=== PATIENT | female | born 1985 | race Caucasian/White ===

== ENCOUNTER 2016-06-30 12:35 | Outpatient (CLI) | payer BC ==
[~2016-06-30] VITALS: Ht 170.2 cm; Wt 68.6 kg
[~2016-06-30 12:35] MED LIST: IBUP-1773 PO; PREN-37 PO
--- OUTSIDE RECORDS SUMMARY | 2016-06-30 12:47 | XMS REPORT | Continuity of Care Document ---
Author Author [facility] Organization [facility] Address Unknown Phone Unavailable Allergies Active Description Code Type Severity Reaction Onset Reported/Identified Relationship to Patient Clinical Status Yes NKANo Known Allergies NKA Miscellaneous Allergy Unknown N/ A 11/19/2006 Yes Cephalosporins [id number] Drug Allergy Moderate SEVERE RASH 07/22/2015 Yes penicillinase [id number] Drug Allergy Moderate RASH 07/22/2015 Medications Problems Date Dx Coded Attending Type Code Diagnosis Diagnosed By 05/26/2014 DAMIEN PHILLIPS DO S Ot 640.03 05/26/2014 DAMIEN PHILLIPS DO S Ot 640.03 05/26/2014 DAMIEN PHILLIPS DO S Ot 640.03 05/26/2014 DAMIEN PHILLIPS DO S Ot 640.03 06/10/2014 FENECH DAMIEN HENDERSON S Ot 640.03 01/28/2015 FENECH DO DAMIEN S Ot 640.03 02/11/2015 JEANNIE STARK MANGA ARTIST Ot N91.2 07/05/2015 JEANNIE STARK MANGA ARTIST Ot N91.2 07/05/2015 JEANNIE STARK MANGA ARTIST Ot N91.2 07/22/2015 DAMIEN PHILLIPS DO S Ot O02.1 07/22/2015 DAMIEN PHILLIPS DO S Ot Z01.812 07/22/2015 FENECH DAMIEN HENDERSON S Ot Z11.2 07/23/2015 FENECH DO DAMIEN S Ot O02.1 07/23/2015 FENECH DO DAMIEN S Ot Z01.812 07/23/2015 FENECH DO DAMIEN S Ot Z11.2 07/27/2015 JEANNIE STARK MANGA ARTIST Ot N91.2 07/27/2015 JEANNIE STARK MANGA ARTIST Ot N91.2 07/27/2015 JEANNIE STARK MANGA ARTIST Ot N91.2 07/27/2015 DAMIEN PHILLIPS DO S Ot O03.4 07/27/2015 DAMIEN PHILLIPS DO S Ot Z3A.09 Procedures Results Encounters ACCT No. Visit Date/Time Discharge Status Pt. Type Provider Facility Loc./Unit Complaint [id number] 07/27/2015 06:00:00 2015 09:40:00 DIS Outpatient DAMIEN PHILLIPS DO [facility] [id number] 07/22/2015 12:09:00 2015 13:29:00 DIS Outpatient DAMIEN PHILLIPS DO [facility] PREOP [id number] 01/28/2015 10:29:00 2014 23:59:59 CLS Outpatient JEANNIE STARK MANGA ARTIST [facility] LAB [id number] 05/24/2014 13:53:00 2014 23:59:59 CLS Outpatient ALAN HENDERSON DAMIEN Shiva [facility] LAB [id number] 06/16/2015 09:25:00 ACT Outpatient JEANNIE STARK MANGA ARTIST [facility] LAB [id number] 06/14/2015 13:33:00 ACT Outpatient JEANNIE STARK MANGA ARTIST [facility] LAB
[2016-06-30 12:52] VITALS: BP 107/58
[2016-06-30] MEDS ORDERED: D5 LR IV SOLUTION 1,000 ML IV ONE ×2 (13:16→14:00)
[2016-06-30] MEDS ORDERED: ENOX40DI13 SQ (14:07)
[2016-06-30] MEDS ORDERED: PROG50VI5 IM (14:08)
[2016-06-30] MEDS ORDERED: PREN-53 PO (14:08)
[2016-06-30] MEDS ORDERED: IRON1TAB95 PO (14:09)
--- NOTE | 2016-07-03 15:06 | Physician Query-Final Dx ---
JOHNSON JIMENES 07/03/16 1506: Clinic Account Progress/Dx Physician Query: Please give diagnosis Date of Service Jun 30, 2016 at 12:35 DARINEL HERNANDEZ MD 07/04/16 0822: Clinic Account Progress/Dx DIAGNOSIS: Diagnosis false labor JOHNSON JIMENES Jul 03, 2016 15:06 DARINEL HERNANDEZ MD Jul 04, 2016 08:22
== END 2016-06-30 16:01 | disposition home or self-care (01) ==
LOC: WSo 12:35 → LDRP 12:35 → WSo 16:01
PROVIDERS: ATTEND Obstetrics & Gynecology
DX: O47.03 False labor before 37 completed weeks of gestation, third trimester (principal); Z3A.28 28 weeks gestation of pregnancy
CPT/HCPCS: 96360; 96361; 99214

== ENCOUNTER 2016-08-09 22:00 | Outpatient (CLI) | payer BC ==
[~2016-08-09] VITALS: Ht 170.2 cm; Wt 70.8 kg
[~2016-08-09 22:00] MED LIST changes: +ENOX40DI13 SQ; +IRON1TAB95 PO; +PREN-53 PO; +PROG50VI5 IM
[2016-08-09 22:17] VITALS: BP 114/62
[2016-08-09 22:48] LABS: BILIRUBIN,URINE NEGATIVE (NEGATIVE); KETONES,URINE NEGATIVE (NEGATIVE); LEUKOCYTE ESTERASE ,URINE NEGATIVE (NEGATIVE); NITRITE,URINE NEGATIVE (NEGATIVE); PH,URINE 7 (5-9); PROTEIN,URINE NEGATIVE (NEGATIVE); UROBILINOGEN,URINE NORMAL (NORMAL)
[2016-08-09 23:55] LABS: ALANINE AMINOTRANSFERASE 10 U/L (0-55); ALBUMIN 3.1 G/DL (3.2-4.5); ANION GAP 12 MMOL/L (5-14); ASPARTATE AMINO TRANSFERASE 10 U/L (5-34); BILIRUBIN,TOTAL 0.3 MG/DL (0.1-1.0); BLOOD UREA NITROGEN 7 MG/DL (7-18); BUN/CREATININE RATIO 11; CALCIUM 8.6 MG/DL (8.5-10.1); CARBON DIOXIDE 18 MMOL/L (21-32); CHLORIDE 107 MMOL/L (98-107); CREATININE SERUM 0.61 MG/DL (0.60-1.30); GFR ESTIMATED > 60; GLUCOSE 83 MG/DL (70-105); POTASSIUM 3.5 MMOL/L (3.6-5.0); SODIUM 137 MMOL/L (135-145); TOTAL PROTEIN 6.1 G/DL (6.4-8.2)
[2016-08-10] MEDS ORDERED: [UNRECOGNIZED DRUG - CODE] SQ (00:24)
[2016-08-10] MEDS ORDERED: ASPI-999 PO (00:24)
--- NOTE | 2016-08-10 14:51 | Physician Query-Final Dx ---
ANITA MARTÍNEZ 08/10/16 1451: Clinic Account Progress/Dx Physician Query: Please give diagnosis Date of Service Aug 09, 2016 at 22:00 PHYLLIS FANG MD 08/16/16 0846: Clinic Account Progress/Dx DIAGNOSIS: Diagnosis Itching in third trimester, contractions in third trimester ANITA MARTÍNEZ Aug 10, 2016 14:51 PHYLLIS FANG MD Aug 16, 2016 08:46
[2016-08-15 02:37] LABS: CHENODEOXYCHOLIC ACID 1.4 umol/L (0.0-3.4); CHOLIC ACID 0.9 umol/L (0.0-1.9); DEOXYCHOLIC ACID 1.6 umol/L (0.0-2.5); URSODEOXYCHOLIC ACID 0.3 umol/L (0.0-1.0)
[2016-08-15 07:28] LABS: TOTAL BILE ACID 4.2 umol/L (0.0-7.0)
== END 2016-08-10 00:30 | disposition home or self-care (01) ==
LOC: WSo 22:00 → LDRP 22:00 → WSo 08-10 00:30
PROVIDERS: ATTEND Obstetrics & Gynecology
DX: O47.1 False labor at or after 37 completed weeks of gestation (principal); Z3A.34 34 weeks gestation of pregnancy; O99.73 Diseases of the skin and subcutaneous tissue complicating the puerperium; L29.9 Pruritus, unspecified
CPT/HCPCS: 36415; 80053; 81000; 83789; 99213

== ENCOUNTER 2016-09-05 09:38 | Outpatient (CLI) | payer BC ==
[~2016-09-05] VITALS: Ht 170.2 cm; Wt 73.0 kg
[~2016-09-05 09:38] MED LIST changes: +ASPI-999 PO; +[UNRECOGNIZED DRUG - CODE] SQ
[2016-09-05] MEDS ORDERED: FOLI1TAB24 PO (09:53)
[2016-09-05 09:56] VITALS: BP 115/74
== END 2016-09-05 10:01 | disposition home or self-care (01) ==
LOC: PREOP 09:38
PROVIDERS: ATTEND Obstetrics & Gynecology
DX: Z01.818 Encounter for other preprocedural examination (principal); Z11.2 Encounter for screening for other bacterial diseases; O34.211 Maternal care for low transverse scar from previous cesarean delivery
CPT/HCPCS: 87081

== ENCOUNTER 2016-09-11 05:50 | Inpatient (IN) | payer BC ==
[~2016-09-11] VITALS: Ht 170.2 cm; Wt 72.6 kg
[~2016-09-11 05:50] MED LIST changes: +CITRIC ACID/SOB CIT (BICITRA) 30 ML UDC ONE; +CLINDAMYCIN 900 MG/6ML (CLEOCIN) VIAL ONE; +FAMOTIDINE 20MG/2ML IV (PEPCID) ONE; +FOLI1TAB24 PO; +LACTATED RINGERS 1,000 ML IV ONE; +METOCLOPRAMIDE INJ 10 MG/2 ML (REGLAN) ONE; +NS (IVPB) 50 ML ONE; +metroNIDAZOLE 500MG/100ML IVPB 100 ML ONE
[2016-09-11 05:54] VITALS: BP 128/76
[2016-09-11] MEDS ORDERED: LACTATED RINGERS 1,000 ML IV PRN ×2 (06:16→07:24)
[2016-09-11 06:26] LABS: BASOPHILS % (AUTO) 0 % (0-10); EOSINOPHILS # (AUTO) 0.1 10^3/uL (0.0-0.3); EOSINOPHILS % (AUTO) 1 % (0-10); LYMPHOCYTES # (AUTO) 1.4 X 10^3 (1.0-4.0); LYMPHOCYTES % (AUTO) 16 % (12-44); MEAN CORPUSCULAR HEMOGLOBIN 27 PG (25-34); MEAN CORPUSCULAR HGB CONC 33 G/DL (32-36); MEAN CORPUSCULAR VOLUME 83 FL (80-99); MEAN PLATELET VOLUME 10.5 FL (7.4-10.4); MONOCYTES # (AUTO) 0.5 X 10^3 (0.0-1.0); MONOCYTES % (AUTO) 6 % (0-12); NEUTROPHILS # (AUTO) 7.2 X 10^3 (1.8-7.8); NEUTROPHILS % (AUTO) 78 % (42-75); PLATELET COUNT 241 10^3/uL (130-400); RED CELL DISTRIBUTION WIDTH 14.2 % (10.0-14.5); WHITE BLOOD COUNT 9.2 10^3/uL (4.3-11.0)
[2016-09-11] MEDS ORDERED: FAMOTIDINE 20MG/2ML IV (PEPCID) IV ONE ×2 (06:30→07:00)
[2016-09-11] MEDS ORDERED: CITRIC ACID/SOB CIT (BICITRA) 30 ML UDC PO ONE ×2 (06:30→07:00)
[2016-09-11] MEDS ORDERED: METOCLOPRAMIDE INJ 10 MG/2 ML (REGLAN) IV ONE ×2 (06:30→07:00)
[2016-09-11 06:57] VITALS: BP 108/64
[2016-09-11] MEDS ORDERED: LACTATED RINGERS 1,000 ML IV SCH ×2 (06:57)
[2016-09-11] MEDS ORDERED: OXYTOCIN/NORMAL SALINE 1,000 ML IV ONE (07:00)
[2016-09-11] MEDS ORDERED: fentaNYL INJECTION 100 MCG/2 ML AMP ONE (07:00)
--- NOTE | 2016-09-11 07:16 | History & Physical-OB ---
OB - Chief Complaint & HPI Date Date of Admission: Date of Admission: September 11, 2016 at 5:50 am Chief Complaint/History Hx : 5 Hx Para: 1 Expected Date of Delivery: September 17, 2016 Gestational Age in Weeks: 39 Gestational Age in Days: 1 Indication for : desires repeat Admission Nurse Assessment Rev: Yes History of Labs A pos Antibody neg Rubella equivocal RPR NR HIV NR HBsAg NR GC neg GBS neg Allergies and Home Medications Allergies Coded Allergies: Cephalosporins (Verified Allergy, Intermediate, SEVERE RASH, 07/22/15) Penicillins (Verified Allergy, Unknown, 09/05/16) Home Medications Aspirin 81 Mg Tab.chew, 81 MG PO DAILY, (Reported) Folic Acid 1 Mg Tablet, 1 MG PO DAILY, (Reported) Heparin Sodium,Porcine/Pf 1,000 Unit/1 Ml Vial, 5,000 UNIT SQ BID, (Reported) Iron,Carbonyl/Vit C/Vit B12/FA 1 Each Tablet, 1 EACH PO DAILY, (Reported) Vit/Iron Fumarate/FA 1 Each Tablet, 1 EACH PO DAILY, (Reported) OB - History Hx of Present Care: Yes Ultrasounds: Normal mid trimester US Obstetrical Complications: None Medical Complications: Other (Antithrombin III def, MTHFR heterozygous) Delivery History Hx Blood Disorders: No Adverse Rxn to Tranfusion: No Patient Past Medical History Habitual , MVP Social History/Family History HIV/AIDS: No Recent Infectious Disease Expo: No Sexually Transmitted Disease: No Alcohol Use: Denies Use Recreational Drug Use: No Immunizations Date of Influenza Vaccine: May 02, 2016 OB - Admission Exam Physical Exam HEENT: NCAT Lungs: Clear Abdomen: Gravid Extremities: Normal Reflexes: Normal Cervical Dilatation: 3cm Effacement: 75% Station: -2 Membranes: Intact Heart Rate: 130's Accelerations: Accelerations Present Decelerations: No Decelerations Short Term Variability: Present Penitentiary Variability: Average (6-25) Contractions on Admission: 6-10 Minutes Apart Intensity: Mild Labs Laboratory Tests Test 09/11/16 06:05 Range/Units White Blood Count 9.2 4.3-11.0 10^3/uL Red Blood Count 3.90 L 4.35-5.85 10^6/uL Hemoglobin 10.5 L 11.5-16.0 G/DL Hematocrit 32 L 35-52 % Mean Corpuscular Volume 83 80-99 FL Mean Corpuscular Hemoglobin 27 25-34 PG Mean Corpuscular Hemoglobin Concent 33 32-36 G/DL Red Cell Distribution Width 14.2 10.0-14.5 % Platelet Count 241 130-400 10^3/uL Mean Platelet Volume 10.5 H 7.4-10.4 FL Neutrophils (%) (Auto) 78 H 42-75 % Lymphocytes (%) (Auto) 16 12-44 % Monocytes (%) (Auto) 6 0-12 % Eosinophils (%) (Auto) 1 0-10 % Basophils (%) (Auto) 0 0-10 % Neutrophils # (Auto) 7.2 1.8-7.8 X 10^3 Lymphocytes # (Auto) 1.4 1.0-4.0 X 10^3 Monocytes # (Auto) 0.5 0.0-1.0 X 10^3 Eosinophils # (Auto) 0.1 0.0-0.3 10^3/uL Basophils # (Auto) 0.0 0.0-0.1 10^3/uL OB - Assessment/Plan/Diagnosis Assessment Assessment: section Plan Plan: Section Discharge Diagnosis Diagnosis: 31 yo @ 39.1 weeks Previous section MTHFR heterozygous Antithrombin III def Mitral valve prolapse GBS neg DAMIEN PHILLIPS DO September 11, 2016 7:16 am
[2016-09-11] MEDS: KETOROLAC 30 MG/ML VIAL IVP SCH ×3 (08:00→21:09)
[2016-09-11] MEDS ORDERED: DEXAMETHASONE PF 10 MG/ML (DECADRON) VIAL ONE (08:05)
[2016-09-11] MEDS ORDERED: ONDANSETRON 4 MG/2 ML (SDV) Z0FRAN ONE (08:05)
[2016-09-11] MEDS ORDERED: KETOROLAC 30 MG/ML VIAL ONE (08:05)
[2016-09-11] MEDS ORDERED: OXYTOCIN/NORMAL SALINE 500 ML IV SCH (08:15)
[2016-09-11] MEDS ORDERED: HYDROcodone/APAP 5 MG/325 MG (LORTAB) TAB PO PRN (08:15)
[2016-09-11] MEDS ORDERED: MEASLES,MUMPS,RUBELLA 1 EA INJ SC SCH (08:15)
[2016-09-11] MEDS ORDERED: TETANUS,DIPTH,PERTUSS P/F (BOOSTRIX) 0.5 ML VIAL IM SCH (08:15)
[2016-09-11] MEDS ORDERED: HYDROmorphone (DILAUDID) 2 MG/ML VIAL IVP PRN (08:15)
[2016-09-11] MEDS ORDERED: ONDANSETRON 4 MG/2 ML (SDV) Z0FRAN IVP PRN (08:15)
--- NOTE | 2016-09-11 08:21 | Discharge Inst-Women's Service ---
Discharge Inst-Women's Serv Depart Medication/Instructions New, Converted or Re-Newed RX: RX on Chart Consults/Follow Up Additional Follow Up: Yes Orders/Referrals Dr. Sanchez in 7-10 days and in 6 weeks Activity Activity: Activity as Tolerated NO SMOKING: NO SMOKING Nothing Inside Vagina: No Douching, No [place], No Tampons Diet Discharge Diet: No Restrictions Symptoms to Report to : Bleeding Excessive, Pain Increased, Fever Over 101 Degrees F, Vaginal Bleeding Increase, Questions/Concerns continue lovenox x 2 weeks postop For Any Problems or Questions: Contact Your Physician Skin/Wound Care Infection Signs and Symptoms: Increased Redness, Foul Odor of Wound, Increased Drainage, Skin Itchy or Has a Rash, Increased Swelling, Temperature Above 101 F Operative Area Clean and Dry: Keep Incision Clean/Dry Stitches/[place]/Dermabond: Dermabond, Care of Stitches Bathing Instructions: DAMIEN Kennedy DO September 11, 2016 8:20 am
[2016-09-11] MEDS ORDERED: IBUP-1773 PO (08:23)
[2016-09-11] MEDS ORDERED: DOCU100C37 PO (08:23)
[2016-09-11] MEDS ORDERED: HYDR-3812 PO (08:23)
[2016-09-11] MEDS ORDERED: ENOX40DI8 SQ (08:28)
[2016-09-11] MEDS ORDERED: NALOXONE 0.4 MG/ML 1 ML (NARCAN) VIAL IV PRN ×2 (08:30)
[2016-09-11] MEDS ORDERED: METOCLOPRAMIDE INJ 10 MG/2 ML (REGLAN) IV PRN (08:30)
[2016-09-11] MEDS ORDERED: ONDANSETRON 4 MG/2 ML (SDV) Z0FRAN IV PRN (08:30)
[2016-09-11] MEDS ORDERED: diphenhydrAMINE 50 MG/ML INJ (BENADRYL) IV PRN (08:30)
[2016-09-11 09:00] VITALS: BP 108/62
[2016-09-11 12:06] VITALS: BP 102/61
[2016-09-11] MEDS ORDERED: CATHETER FLUSH 10 ML SYR IV SCH (14:00)
--- NOTE | 2016-09-11 15:32 | OPERATIVE REPORT ---
DATE OF SERVICE: 09/11/2016 PREOPERATIVE DIAGNOSES: 1. A 31-year-old G5, P1 at 39 weeks and 1 day gestation. 2. Previous section x1. POSTOPERATIVE DIAGNOSES: 1. A 31-year-old G5, P1 at 39 weeks and 1 day gestation. 2. Previous section x1. PROCEDURE PERFORMED: Repeat low transverse section. SURGEON: Dr. Fran Sanchez CHECKING CLERK: MIGUEL Shelby, who was necessary for retraction of tissues and completion of procedure. ANESTHESIA: Spinal. ESTIMATED BLOOD LOSS: 500 mL. URINE OUTPUT: 25 mL. FLUIDS: 1500 mL LR FINDINGS: A live female weighing 8 pounds 1 ounce, Apgars 8 and 9, grossly normal appearing uterus, bilateral fallopian tubes and ovaries. Dense scar tissue of the vesicouterine peritoneum. INDICATION FOR PROCEDURE: A 31-year-old female, a patient established in my office and saw her in care throughout her entire . It was uncomplicated with the exception of history of labor. She received [place] 17 alpha hydroxyprogesterone injections weekly up until 35 weeks and she also was undergoing Lovenox and heparin therapy due to history of anti-thrombin 3 deficiency and PHFR heterozygous. She proceeded well all the way to 39 weeks with minimal change in cervical dilatation despite irregular contractions in the 3rd trimester. We discussed proceeding with repeat . Risks of the procedure was discussed with the patient, details including risks of bleeding, infection, damage to any surrounding structures including but not limited to bowel, bladder, ureter, kidneys, need for blood transfusion, hysterectomy and even . Everything was discussed with the patient, consent was obtained in the preoperative area and the patient was taken back to the operating room. OPERATIVE REPORT IN DETAIL: Once in the operating room, spinal analgesia was found to be adequate. She was placed in the supine position with leftward tile, prepped and draped in a normal sterile fashion. Time-out was performed and anesthesia was tested. I then proceeded with making a Pfannenstiel skin incision through the previously existing scar using a knife and carried down to the underlying fascia using Bovie cautery. The fascia incision was extended laterally using Bovie cautery. Superior aspect of fascial incision then grasped with Zehra clamp, tented up and dissected off the underlying rectus muscles. The inferior aspect of the fascial incision was then grasped with Zehra clamps, tented upward and dissected off the underlying rectus muscles. The rectus muscles were then dissected down the midline using Zazueta scissors which exposed the peritoneum which I entered bluntly. Peritoneum incision was extended using blunt traction which reveals the peritoneal surface in the uterus which was found to be thinned out in the lower uterine segment. I then placed the Mick ring retractor in the peritoneal incision which offered excellent lateral sidewall retraction. Then making incision at the vesicouterine peritoneum and bluntly dissect the bladder flap off of the lower uterine segment, pulling the vesicouterine peritoneum up caudad. I then proceeded with myotomy until membranes were visualized at which point I extended the uterine incision laterally and superiorly using bandage scissors. Amniotomy was performed using an Allis clamp. Clear fluid was noted. The was found in the vertex presentation. With gentle fundal pressure, the 's head was elevated up through the incision where it was delivered through the incision. The nares and oropharynx were bulb suctioned. Anterior and posterior shoulders were delivered after a nuchal cord was reduced. The infant was then brought onto the operative field where the cord was doubly clamped and cut and was handed off to awaiting nurses in attendance. Cord blood was collected, 3 vessel cord with intact placenta was delivered spontaneously thereafter. IV Pitocin was initiated to facilitate uterine contraction and fundus became firm with bimanual massage. The uterus was then exteriorized and cleared of all clots and debris. I then proceeded with closing the uterine incision with 0 Vicryl suture in a running locked fashion, a 2nd layer imbricating with 0 Monocryl. Excellent hemostasis noted after doing so. I then placed the uterus back into the pelvis and copiously irrigated the pelvis using normal saline. There was no active bleeding noted from any of my dissection planes. I then placed Interceed antiadhesive over my lower transverse incision and proceeded with closing the peritoneum using 3-0 Vicryl suture in a running fashion. The rectus muscles were reapproximated using 3-0 Vicryl in running interrupted fashion. The fascia was reapproximated using 0 Vicryl suture in a running fashion. The skin was then closed using 4-0 Monocryl in a running subcuticular. Dermabond was applied, dressed with a sterile dressing and adhesive white tape. The patient tolerated the procedure well and was sent to the recovery area in stable condition. Lap and sponge counts were correct at the end of the procedure. Instrument counts were correct as well. 900 mg clindamycin were given preoperative for infection prophylaxis. Job ID: [id number] DocumentID: [id number] Dictated Date: 09/11/2016 07:56:54 Electroplating Laborer Date: 09/11/2016 13:53:30 Dictated By: DO RICKIE VAZQUEZ
[2016-09-11 17:00] VITALS: BP 110/59
[2016-09-11 20:05] VITALS: BP 102/64
[2016-09-11] MEDS: DOCUSATE SODIUM 100 MG (COLACE) CAP PO SCH (21:08)
[2016-09-12] VITALS (7 sets, daily range): BP systolic 97–113; BP diastolic 62–73
[2016-09-12] MEDS: KETOROLAC 30 MG/ML VIAL IVP SCH (03:11)
[2016-09-12 05:46] LABS: BASOPHILS % (AUTO) 0 % (0-10); EOSINOPHILS % (AUTO) 0 % (0-10); LYMPHOCYTES # (AUTO) 2.2 X 10^3 (1.0-4.0); LYMPHOCYTES % (AUTO) 17 % (12-44); MEAN CORPUSCULAR HEMOGLOBIN 26 PG (25-34); MEAN CORPUSCULAR HGB CONC 32 G/DL (32-36); MEAN CORPUSCULAR VOLUME 83 FL (80-99); MEAN PLATELET VOLUME 10.1 FL (7.4-10.4); MONOCYTES # (AUTO) 0.9 X 10^3 (0.0-1.0); MONOCYTES % (AUTO) 7 % (0-12); NEUTROPHILS # (AUTO) 9.6 X 10^3 (1.8-7.8); NEUTROPHILS % (AUTO) 76 % (42-75); PLATELET COUNT 190 10^3/uL (130-400); RED BLOOD COUNT 2.96 10^6/uL (4.35-5.85); RED CELL DISTRIBUTION WIDTH 14.1 % (10.0-14.5); WHITE BLOOD COUNT 12.7 10^3/uL (4.3-11.0)
[2016-09-12] MEDS: DOCUSATE SODIUM 100 MG (COLACE) CAP PO SCH ×2 (08:45→19:55)
[2016-09-12] MEDS: IBUPROFEN 600 MG (MOTRIN) TAB PO SCH ×3 (08:45→21:37)
[2016-09-12] MEDS: ENOXAPARIN 40 MG/0.4 ML (LOVENOX) SYR SC SCH (08:46)
[2016-09-12] MEDS ORDERED: FERROUS SULF 325 MG (IRON) TAB PO ONE (08:59)
[2016-09-12] MEDS: FERROUS SULF 325 MG (IRON) TAB PO SCH ×2 (09:08→19:55)
--- NOTE | 2016-09-12 09:11 | Progress Note-Standard ---
Standard Progress Note Progress Notes/Assess & Plan Progress/Assessment & Plan Patient doing well this AM. Pain well controlled. Lochia light. Ambulating and voiding freely. Denies lightheadedness, dizziness. Vital Sign - Last 24 Hours 09/11/16 09/11/16 09/11/16 09/12/16 12:06 17:00 20:05 01:10 Temp 99.0 99.0 98.0 98.4 Pulse 86 60 71 84 Resp 18 18 18 18 B/P (MAP) 102/61 110/59 102/64 97/62 Pulse Ox 95 97 96 97 09/12/16 06:10 Temp 98.2 Pulse 70 Resp 18 B/P (MAP) 98/62 Pulse Ox 96 Intake and Output 09/11/16 09/11/16 09/12/16 15:00 23:00 07:00 Intake Total 100 ml 1200 ml 500 ml Output Total 25 ml 900 ml 800 ml Balance 75 ml 300 ml -300 ml Laboratory Tests Test 09/12/16 05:25 Range/Units White Blood Count 12.7 H 4.3-11.0 10^3/uL Red Blood Count 2.96 L 4.35-5.85 10^6/uL Hemoglobin 7.8 #L 11.5-16.0 G/DL Hematocrit 25 L 35-52 % Mean Corpuscular Volume 83 80-99 FL Mean Corpuscular Hemoglobin 26 25-34 PG Mean Corpuscular Hemoglobin Concent 32 32-36 G/DL Red Cell Distribution Width 14.1 10.0-14.5 % Platelet Count 190 130-400 10^3/uL Mean Platelet Volume 10.1 7.4-10.4 FL Neutrophils (%) (Auto) 76 H 42-75 % Lymphocytes (%) (Auto) 17 12-44 % Monocytes (%) (Auto) 7 0-12 % Eosinophils (%) (Auto) 0 0-10 % Basophils (%) (Auto) 0 0-10 % Neutrophils # (Auto) 9.6 H 1.8-7.8 X 10^3 Lymphocytes # (Auto) 2.2 1.0-4.0 X 10^3 Monocytes # (Auto) 0.9 0.0-1.0 X 10^3 Eosinophils # (Auto) 0.0 0.0-0.3 10^3/uL Basophils # (Auto) 0.0 0.0-0.1 10^3/uL Incision: c/d/i Diagnosis: POD 1 RLTCS Acute blood loss anemia superimposed on anemia of Antithrombin III def MTHFR heterozygous P: Lovenox resumed today Replace iron Encourage ambulation/ Anticipate dc tomorrow. DAMIEN PHILLIPS DO September 12, 2016 9:11 am
--- NOTE | 2016-09-12 11:34 | Anesthesia-Regional Post-Op ---
Regional Patient Condition Mental Status: Alert, Oriented x3 Circulation: Same as Pre-Op Headache: Absent Sensation: Full Recovery Motor Block: Absent Post Op Complications Complications None Follow Up Care/Instructions Patient Instructions None needed. Anesthesia/Patient Condition Patient is doing well, no complaints, stable vital signs, no apparent adverse anesthesia problems. No complications reported per nursing. ANITA MARTINEZ CRNA September 12, 2016 11:34
[2016-09-13] MEDS: IBUPROFEN 600 MG (MOTRIN) TAB PO SCH ×2 (03:30→08:39)
[2016-09-13 05:24] VITALS: BP 115/74
[2016-09-13 08:30] VITALS: BP 114/71
[2016-09-13] MEDS: FERROUS SULF 325 MG (IRON) TAB PO SCH (08:38)
[2016-09-13] MEDS: ENOXAPARIN 40 MG/0.4 ML (LOVENOX) SYR SC SCH (08:38)
[2016-09-13] MEDS: DOCUSATE SODIUM 100 MG (COLACE) CAP PO SCH (08:39)
--- NOTE | 2016-09-13 09:34 | Progress Note-Standard ---
Standard Progress Note Progress Notes/Assess & Plan Progress/Assessment & Plan Patient doing well this AM. Pain well controlled. Lochia light. Ambulating and voiding freely. Denies lightheadedness, dizziness. Vital Sign - Last 24 Hours 09/12/16 09/12/16 09/12/16 09/12/16 13:30 18:00 19:36 23:10 Temp 99.0 99.0 98.7 97.3 Pulse 85 89 78 67 Resp 18 18 18 20 B/P (MAP) 104/63 113/73 113/68 107/64 Pulse Ox 97 97 95 96 09/13/16 09/13/16 05:24 08:30 Temp 97.9 98.7 Pulse 69 67 Resp 18 18 B/P (MAP) 115/74 114/71 Pulse Ox 97 97 Intake and Output 09/12/16 09/12/16 09/13/16 15:00 23:00 07:00 Intake Total 1890 ml 1000 ml Output Total 2400 ml 1000 ml Balance -510 ml 0 ml Incision: c/d/i Diagnosis: POD 2 RLTCS Acute blood loss anemia superimposed on anemia of Antithrombin III def MTHFR heterozygous P: Lovenox resumed today Replace iron Encourage ambulation/ Anticipate today. DAMIEN PHILLIPS DO September 13, 2016 9:34 am
[2016-09-13 11:45] VITALS: BP 114/71
== END 2016-09-13 11:45 | disposition home or self-care (01) | DRG 765 ==
LOC: LDRP 05:50
PROVIDERS: ADMIT Obstetrics & Gynecology; ATTEND Obstetrics & Gynecology
PROC: 3E0P05Z Introduction of Adhesion Barrier into Female Reproductive, Open Approach (ICD-10-PCS; 2016-09-11)
PROC: 10D00Z1 Extraction of Products of Conception, Low, Open Approach (ICD-10-PCS; principal; 2016-09-11 07:08)
DX: O34.211 Maternal care for low transverse scar from previous cesarean delivery (principal); O99.113 Other diseases of the blood and blood-forming organs and certain disorders involving the immune mechanism complicating pregnancy, third trimester; D68.59 Other primary thrombophilia; O99.283 Endocrine, nutritional and metabolic diseases complicating pregnancy, third trimester; E72.12 Methylenetetrahydrofolate reductase deficiency; O99.013 Anemia complicating pregnancy, third trimester; D62 Acute posthemorrhagic anemia; I34.1 Nonrheumatic mitral (valve) prolapse; Z3A.39 39 weeks gestation of pregnancy; Z37.0 Single live birth; Z23 Encounter for immunization
CPT/HCPCS: 36415; 85025; 86850; 86900; 86901; 90707; 94664

== ENCOUNTER 2017-03-20 07:59 | Emergency (ER) | payer BC ==
[~2017-03-20] VITALS: Ht 170.2 cm; Wt 59.0 kg
[~2017-03-20 07:59] MED LIST changes: -CITRIC ACID/SOB CIT (BICITRA) 30 ML UDC ONE; -CLINDAMYCIN 900 MG/6ML (CLEOCIN) VIAL ONE; +DOCU100C37 PO; +ENOX40DI8 SQ; -FAMOTIDINE 20MG/2ML IV (PEPCID) ONE; +HYDR-3812 PO; -LACTATED RINGERS 1,000 ML IV ONE; -METOCLOPRAMIDE INJ 10 MG/2 ML (REGLAN) ONE; -NS (IVPB) 50 ML ONE; -metroNIDAZOLE 500MG/100ML IVPB 100 ML ONE
[2017-03-20 08:32] LABS: BILIRUBIN,URINE NEGATIVE (NEGATIVE); KETONES,URINE NEGATIVE (NEGATIVE); LEUKOCYTE ESTERASE ,URINE 1+ (NEGATIVE); NITRITE,URINE NEGATIVE (NEGATIVE); PH,URINE 7 (5-9); PROTEIN,URINE NEGATIVE (NEGATIVE); UROBILINOGEN,URINE NORMAL (NORMAL)
[2017-03-20] MEDS ORDERED: NITR-65 PO (09:08)
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
[2017-03-20 09:11] VITALS: BP 116/71
== END 2017-03-20 09:12 | disposition home or self-care (01) ==
LOC: EDUNIT# 07:59 → ER 08:01
DX: N39.0 Urinary tract infection, site not specified (principal); M54.5 Low back pain; K21.9 Gastro-esophageal reflux disease without esophagitis; Z87.59 Personal history of other complications of pregnancy, childbirth and the puerperium; Z95.2 Presence of prosthetic heart valve
CPT/HCPCS: 81000; 84703; 87088; 99282

== ENCOUNTER → 2018-07-23 | Outpatient (CLI) | payer OTHER ==
[~2018-07-23] MED LIST changes: +ACHD5005 PO; -HYDR-3812 PO; +NITR-65 PO
--- NOTE | 2018-07-23 13:47 | Diagnostic Imaging Report ---
INDICATION: survey. TECHNIQUE: Multiple real-time grayscale images were obtained over the gravid uterus. COMPARISON: None. FINDINGS: There is a single live fetus in variable presentation. heart rate was recorded at 140 beats per minute. Placenta is anterior and fundal. Amniotic fluid volume appears normal. survey does show kidneys, bladder, and stomach to be unremarkable. There is a four-chamber heart. There is a three-vessel cord with normal insertion. Spine is somewhat limited in evaluation due to position. Images of the brain demonstrate what appears to be significant hydrocephalus. There appears to be overlying parenchymal thinning. There is a dangling choroid sign. There does appear to be septum pellucidum. Biometrical measurements are as follows: Biparietal 5.77 cm, age 23 weeks 5 days. Head circumference 21.51 cm, age 23 weeks 4 days. Abdominal circumference 15.43 cm, age 20 weeks 5 days. Femur length 3.62 cm, age 21 weeks 4 days. Sonographic estimate age: 22 weeks 3 days. Sonographic estimated date of delivery: 11/23/2018. Estimated Weight: 417 gm (+/- 61 gm). LMP percentile: 71%. heart rate: 140 beats per minute. number: 1 of 1. IMPRESSION: 1. Single live IUP at approximately 22 weeks 3 days gestational age. Estimated date of confinement sonographically is 11/23/2018. 2. survey demonstrates what appears to be significant hydrocephalus. No other anomalies are identified. Results were called to Dr. Sanchez prior to this dictation. Dictated by: Dictated on workstation # [id number]
== END ==
LOC: RAD 10:01
PROVIDERS: ATTEND Obstetrics & Gynecology
DX: Z36.89 Encounter for other specified antenatal screening (principal); Z3A.22 22 weeks gestation of pregnancy
CPT/HCPCS: 76805

== ENCOUNTER 2019-11-03 09:48 | Emergency (ER) | payer BC, OTHER ==
[~2019-11-03] VITALS: Ht 170.2 cm; Wt 62.1 kg
[2019-11-03] MEDS ORDERED: LACTATED RINGERS 1,000 ML IV ONE (10:02)
[2019-11-03 10:07] LABS: BILIRUBIN,URINE NEGATIVE (NEGATIVE); CLARITY,URINE CLEAR; COLOR,URINE YELLOW; GLUCOSE, URINE (UA) NEGATIVE (NEGATIVE); KETONES,URINE NEGATIVE (NEGATIVE); LEUKOCYTE ESTERASE ,URINE NEGATIVE (NEGATIVE); NITRITE,URINE NEGATIVE (NEGATIVE); PROTEIN,URINE NEGATIVE (NEGATIVE)
[2019-11-03] MEDS ORDERED: KETOROLAC 30 MG/ML VIAL ONE ×2 (10:13→10:14)
[2019-11-03] MEDS ORDERED: KETOROLAC 30 MG/ML VIAL IVP ONE (10:15)
[2019-11-03 10:18] LABS: BASOPHILS % (AUTO) 1 % (0-10); EOSINOPHILS # (AUTO) 0.3 10^3/uL (0.0-0.3); EOSINOPHILS % (AUTO) 6 % (0-10); HEMATOCRIT 35 % (35-52); HEMOGLOBIN 11.2 G/DL (11.5-16.0); LYMPHOCYTES # (AUTO) 1.9 X 10^3 (1.0-4.0); LYMPHOCYTES % (AUTO) 31 % (12-44); MEAN CORPUSCULAR HEMOGLOBIN 27 PG (25-34); MEAN CORPUSCULAR HGB CONC 32 G/DL (32-36); MEAN CORPUSCULAR VOLUME 84 FL (80-99); MEAN PLATELET VOLUME 9.3 FL (7.4-10.4); MONOCYTES # (AUTO) 0.4 X 10^3 (0.0-1.0); MONOCYTES % (AUTO) 7 % (0-12); NEUTROPHILS # (AUTO) 3.4 X 10^3 (1.8-7.8); NEUTROPHILS % (AUTO) 56 % (42-75); PLATELET COUNT 439 10^3/uL (130-400); RED CELL DISTRIBUTION WIDTH 12.7 % (10.0-14.5); WHITE BLOOD COUNT 6.1 10^3/uL (4.3-11.0)
[2019-11-03 10:29] LABS: BACTERIA,URINE NEGATIVE /HPF; SQUAMOUS EPITHELIAL CELL,UR RARE /HPF
[2019-11-03 10:35] LABS: ALBUMIN 4.4 GM/DL (3.2-4.5); CHLORIDE 105 MMOL/L (98-107); SODIUM 140 MMOL/L (135-145)
[2019-11-03 10:36] LABS: AMYLASE 65 U/L (25-125); CALCIUM 9.7 MG/DL (8.5-10.1)
[2019-11-03 10:37] LABS: GLUCOSE 81 MG/DL (70-105); TOTAL PROTEIN 7.5 GM/DL (6.4-8.2)
[2019-11-03 10:38] LABS: CARBON DIOXIDE 26 MMOL/L (21-32)
[2019-11-03 10:39] LABS: BILIRUBIN,TOTAL 0.4 MG/DL (0.1-1.0)
[2019-11-03 10:41] LABS: ALKALINE PHOSPHATASE 70 U/L (40-136); CREATININE SERUM 0.78 MG/DL (0.60-1.30); GFR ESTIMATED > 60
[2019-11-03 10:42] LABS: BUN/CREATININE RATIO 14
[2019-11-03 10:44] LABS: ALANINE AMINOTRANSFERASE 12 U/L (0-55); LIPASE 20 U/L (8-78)
[2019-11-03] MEDS ORDERED: NS 100 ML (IVPB) BAG IV ONE (10:45)
[2019-11-03] MEDS ORDERED: HOLD METFORMIN - RECEIVED CONTRAST 20 ML VIAL IV SCH (10:45)
[2019-11-03] MEDS ORDERED: IOHEXOL 350 MG/ML 100 ML (OMNIPAQUE 350) VIAL IV ONE (10:45)
[2019-11-03] MEDS ORDERED: CATHETER FLUSH 10 ML SYR IV PRN (10:45)
--- NOTE | 2019-11-03 11:05 | Diagnostic Imaging Report ---
PROCEDURE: CT abdomen and pelvis with contrast, rule out appendicitis. TECHNIQUE: Multiple contiguous axial images were obtained through the abdomen and pelvis after the administration of intravenous contrast. All CT scans use one or more of the following dose optimizing techniques: automated exposure control, MA and/or KvP adjustment based on a patient size and exam type, or iterative reconstruction. INDICATION: Right-sided abdominal pain. COMPARISON: No prior studies are available for comparison. FINDINGS: The lung bases are clear. No discrete liver mass is detected. The gallbladder is unremarkable. No biliary ductal dilatation is identified. The pancreas and spleen are unremarkable. No adrenal mass is detected. The kidneys are unremarkable. No hydronephrosis is identified. The small and large bowel loops are of normal caliber. There is no obstruction. The appendix is not well visualized in the right lower quadrant but no inflammatory changes in the right lower quadrant are seen to suggest appendicitis. The bladder and uterus are unremarkable. There is no free fluid or fluid collection identified. The ovaries are unremarkable. IMPRESSION: Unremarkable CT abdomen and pelvis. No acute abnormality is detected. Dictated by: Dictated on workstation # [id number]
--- NOTE | 2019-11-03 11:15 | Diagnostic Imaging Report ---
Indication: Right lower quadrant abdominal pain Abdomen series PA chest, supine and upright abdominal images are obtained Lungs are clear. There is no intraperitoneal free air. Bowel gas pattern is normal. There are no pathologic masses or calcifications. IMPRESSION: No acute abnormalities in the abdomen Dictated by: Dictated on workstation # [id number]
--- NOTE | 2019-11-03 11:17 | ED Abdominal Pain ---
General Chief Complaint: Abdominal/GI Problems Stated Complaint: R SIDE ABD PAIN Nursing Triage Note: PT AMB TO RM 5 WITH COMPLAINT OF RIGHT SIDE LOWER ABD PAIN. STATES PAIN RADIATES TOWARDS HER BACK. Sepsis Screen: No Definite Risk Source of Information: Patient History of Present Illness Date Seen by Provider: Nov 03, 2019 Time Seen by Provider: 10:00 Initial Comments PT ARRIVES VIA POV FROM HOME C/O RLQ PAIN SINCE YESTERDAY MORNING STATES "IT'S 2 INCHES IN FROM MY HIP BONE AND IS ABOUT 3 CM IN DIAMETER" STATES PAIN IS 5-6/10 STATES "IT FEELS LIKE A BRUISE WHEN MY WAISTBAND RUBS IT" AND PAIN INCREASES WITH TOUCHING IT OCCASIONALLY RADIATES TO RIGHT FLANK AREA NO NAUSEA/VOMITING/DIARRHEA C/O URINARY FREQUENCY, BUT NO PAIN/BURNING ON URINATION STATES SHE HAD TEMP OF 100.4 LAST NIGHT, BUT NO FEVER AT ANY OTHER TIME. NO COUGH/URI SYMPTOMS NO SHORTNESS OF BREATH NO KNOWN SICK CONTACTS OR EXPOSURE TO COVID-19 STATES SHE HAS CHRONIC PELVIC PAIN AND BLADDER ISSUES-STATES IS RELATED TO HER LAST --HAS HAD C-SECTIONS X 3, AND LAST ONE SHE HAD TO HAVE A VERTICAL INCISION ON HER UTERUS BECAUSE HER BABY HAD HYDROCEPHALUS. LMP--10/30/19. NORMAL .HAS HAD BTL. PCP: DR. Lino JAQUEZ MACHINE SETTER AND REPAIRER: DR. PHILLIPS Allergies and Home Medications Allergies Coded Allergies: Cephalosporins (Verified Allergy, Intermediate, SEVERE RASH, 07/22/15) Penicillins (Verified Allergy, Unknown, 09/05/16) Home Medications Cyclobenzaprine HCl 10 Mg Tablet, 10 MG PO Q8H PRN for SPASMS Prescribed by: CATHI ANNA on 11/03/19 1127 Ketorolac Tromethamine 10 Mg Tablet, 10 MG PO Q6H Prescribed by: CATHI ANNA on 11/03/19 1127 Nitrofurantoin Monohyd/M-Cryst 100 Mg Capsule, 1 TAB PO BID Prescribed by: EDEL CATES on 03/20/17 0908 Patient Home Medication List Home Medication List Reviewed: Yes Review of Systems Review of Systems Constitutional: see HPI; No chills, No diaphoresis, No dizziness; fever; No malaise, No weakness EENTM: No Symptoms Reported; No Ear Pain, No Nose Congestion, No Throat Pain Respiratory: No Symptoms Reported; Denies Cough Cardiovascular: No Symptoms Reported; Denies Chest Pain, Denies Edema, Denies Lightheadedness, Denies Palpitations, Denies Syncope Gastrointestinal: See HPI, Abdominal Pain; Denies Constipated, Denies Diarrhea, Denies Nausea, Denies Poor Appetite, Denies Vomiting Genitourinary: See HPI; Denies Burning, Denies Discharge, Denies Drainage; Frequency, Flank Pain; Denies Hematuria, Denies Incontinence, Denies Pain, Denies Urgency Musculoskeletal: see HPI, back pain Skin: no symptoms reported Psychiatric/Neurological: No Symptoms Reported Endocrine: No Symptoms Reported Hematologic/Lymphatic: No Symptoms Reported Past Jetyowo-Glzgoo-Dpdfrd Hx Past Med/Social Hx: Reviewed and Corrections made Patient Social History Alcohol Use: Occasionally Uses Recreational Drug Use: No Smoking Status: Never a Smoker Recent Foreign Travel: No Contact w/Someone Who Travel: No Recent Infectious Disease Expo: No Recent Hopitalizations: No Immunizations Up To Date Tetanus Booster (TDap): Unknown PED Vaccines UTD: Yes Date of Influenza Vaccine: May 02, 2016 Seasonal Allergies Seasonal Allergies: Yes Past Medical History Surgeries: Yes ( X 3;D&C X 2; BTL) Section, Orthopedic, Tubal Ligation Respiratory: No Cardiac: Yes (MITRAL VALVE PROLAPSE-"MINIMAL") Neurological: No : No Last Menstrual Period: Oct 30, 2019 Reproductive Disorders: Yes (CHRONIC PELVIC PAIN AND BLADDER ISSUES AFTER LAST ) Female Reproductive Disorders: Denies 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 HEARTBURN) Gastroesophageal Reflux Musculoskeletal: No Endocrine: No HEENT: No Cancer: No Psychosocial: No Integumentary: No Blood Disorders: Yes (ANTI THROMBIN 3) Adverse Reaction/Blood Tranf: No Family Medical History Patient reports no known family medical history. Physical Exam Vital Signs Vital Signs - First Documented 11/03/19 10:00 Temp 36.8 Pulse 91 Resp 20 B/P (MAP) 123/71 (88) Pulse Ox 95 O2 Delivery Room Air Capillary Refill : Less Than 3 Seconds Height/Weight/BMI Height: 5'7.00" Weight: 130lbs. 0.0oz. [id number]; 21.00 BMI Method:Stated General Appearance: WD/WN, no apparent distress HEENT: PERRL/EOMI Neck: normal inspection Respiratory: normal breath sounds, no respiratory distress, no accessory muscle use Cardiovascular: regular rate, rhythm, no murmur Gastrointestinal: normal bowel sounds, soft, no organomegaly, no pulsatile mass; No distended, No guarding, No rebound; tenderness (MILD RLQ TENDERNESS. 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, no motor/sensory deficits, alert, normal mood/affect, oriented x 3 Skin: normal color, warm/dry; No rash Progress/Results/Core Measures Results/Orders Lab Results Laboratory Tests Test 11/03/19 09:50 11/03/19 10:10 Range/Units Urine Color YELLOW Urine Clarity CLEAR Urine pH 7.0 5-9 Urine Specific Crane <=1.005 1.016-1.022 Urine Protein NEGATIVE NEGATIVE Urine Glucose (UA) NEGATIVE NEGATIVE Urine Ketones NEGATIVE NEGATIVE Urine Nitrite NEGATIVE NEGATIVE Urine Bilirubin NEGATIVE NEGATIVE Urine Urobilinogen 0.2 < = 1.0 MG/DL Urine Leukocyte Esterase NEGATIVE NEGATIVE Urine RBC (Auto) NEGATIVE NEGATIVE Urine RBC NONE /HPF Urine WBC NONE /HPF Urine Squamous Epithelial Cells RARE /HPF Urine Crystals NONE /LPF Urine Bacteria NEGATIVE /HPF Urine Casts NONE /LPF Urine Mucus NEGATIVE /LPF Urine Culture Indicated NO White Blood Count 6.1 4.3-11.0 10^3/uL Red Blood Count 4.14 L 4.35-5.85 10^6/uL Hemoglobin 11.2 L 11.5-16.0 G/DL Hematocrit 35 35-52 % Mean Corpuscular Volume 84 80-99 FL Mean Corpuscular Hemoglobin 27 25-34 PG Mean Corpuscular Hemoglobin Concent 32 32-36 G/DL Red Cell Distribution Width 12.7 10.0-14.5 % Platelet Count 439 H 130-400 10^3/uL Mean Platelet Volume 9.3 7.4-10.4 FL Neutrophils (%) (Auto) 56 42-75 % Lymphocytes (%) (Auto) 31 12-44 % Monocytes (%) (Auto) 7 0-12 % Eosinophils (%) (Auto) 6 0-10 % Basophils (%) (Auto) 1 0-10 % Neutrophils # (Auto) 3.4 1.8-7.8 X 10^3 Lymphocytes # (Auto) 1.9 1.0-4.0 X 10^3 Monocytes # (Auto) 0.4 0.0-1.0 X 10^3 Eosinophils # (Auto) 0.3 0.0-0.3 10^3/uL Basophils # (Auto) 0.0 0.0-0.1 10^3/uL Sodium Level 140 135-145 MMOL/L Potassium Level 4.0 3.6-5.0 MMOL/L Chloride Level 105 98-107 MMOL/L Carbon Dioxide Level 26 21-32 MMOL/L Anion Gap 9 5-14 MMOL/L Blood Urea Nitrogen 11 7-18 MG/DL Creatinine 0.78 0.60-1.30 MG/DL Estimat Glomerular Filtration Rate > 60 BUN/Creatinine Ratio 14 Glucose Level 81 70-105 MG/DL Calcium Level 9.7 8.5-10.1 MG/DL Corrected Calcium 9.4 8.5-10.1 MG/DL Total Bilirubin 0.4 0.1-1.0 MG/DL Aspartate Amino Transf (AST/SGOT) 14 5-34 U/L Alanine Aminotransferase (ALT/SGPT) 12 0-55 U/L Alkaline Phosphatase 70 40-136 U/L Total Protein 7.5 6.4-8.2 GM/DL Albumin 4.4 3.2-4.5 GM/DL Amylase Level 65 25-125 U/L Lipase 20 8-78 U/L My Orders Orders - CATHI ANNA DO Urine Bedside (11/03/19 09:58) Ua Culture If Indicated (11/03/19 09:58) Amylase (11/03/19 10:02) Cbc With Automated Diff (11/03/19 10:02) Comprehensive Metabolic Panel (11/03/19 10:02) Lipase (11/03/19 10:02) Ed Iv/Invasive Line Start (11/03/19 10:02) Ed Iv/Invasive Line Start (11/03/19 10:02) Lactated Ringers (Lr 1000 Ml Iv Solution (11/03/19 10:02) Ketorolac Injection (Toradol Injection) (11/03/19 10:15) Ketorolac Injection (Toradol Injection) (11/03/19 10:13) Ketorolac Injection (Toradol Injection) (11/03/19 10:14) Ct Abd/Pelv W (Appendicitis) (11/03/19 10:30) Acute Abd Series (11/03/19 10:30) Iohexol Injection (Omnipaque 350 Mg/Ml 1 (11/03/19 10:45) Received Contrast (Hold Metformin- Contr (11/03/19 10:45) Sodium Chloride Flush (Catheter Flush Sy (11/03/19 10:45) Ns (Ivpb) (Sodium Chloride 0.9% Ivpb Bag (11/03/19 10:45) Medications Given in ED Vital Signs/I&O 11/03/19 11/03/19 10:00 11:32 Temp 36.8 36.8 Pulse 91 91 Resp 20 20 B/P (MAP) 123/71 (88) 122/74 (88) Pulse Ox 95 95 O2 Delivery Room Air Blood Pressure Mean: 88 Progress Progress Note : Progress Note PAIN IMPROVED AT DISMISSAL Diagnostic Imaging Comments CT ABDOMEN/PELVIS--PER RADIOLOGIST REPORT AT 1116 IMPRESSION: Unremarkable CT abdomen and pelvis. No acute abnormality is detected. ABDOMEN XRAYS--PER RADIOLOGIST REPORT AT 1119 IMPRESSION: No acute abnormalities in the abdomen Departure Impression Primary Impression: RLQ abdominal pain Disposition: HOME, SELF-CARE Condition: Improved Departure-Patient Inst. Referrals: DAMIEN PHILLIPS CHAD C MD (PCP/Family) Primary Care Physician Patient Instructions: Acute Abdomen (Belly Pain), Adult (DC) Add. Discharge Instructions: LOTS OF CLEAR LIQUIDS FOLLOW UP WITH DR. PHILLIPS THIS WEEK FOR FURTHER CARE All discharge instructions reviewed with patient and/or family. Voiced understanding. Scripts Cyclobenzaprine HCl (Cyclobenzaprine HCl) 10 Mg Tablet 10 MG PO Q8H PRN for SPASMS, #15 TAB 0 Refills Prov: SHOSHANA,CATHI K DO 11/03/19 Ketorolac Tromethamine (Ketorolac Tromethamine) 10 Mg Tablet 10 MG PO Q6H for Pain, #15 TAB Prov: SHOSHANA,CATHI K DO 11/03/19 SHOSHANA,CATHI K DO Nov 03, 2019 11:17
[2019-11-03] MEDS ORDERED: KETO10TA PO (11:27)
[2019-11-03] MEDS ORDERED: CYCL10TA9 PO (11:27)
[2019-11-03 11:32] VITALS: BP 122/74
== END 2019-11-03 11:32 | disposition home or self-care (01) ==
LOC: EDUNIT# 09:48 → ER 09:50
DX: R10.31 Right lower quadrant pain (principal); K21.9 Gastro-esophageal reflux disease without esophagitis; D68.59 Other primary thrombophilia
CPT/HCPCS: 36415; 74022; 74177; 80053; 81000; 82150; 83690; 84703; 85025

== ENCOUNTER 2020-03-18 05:39 | Outpatient (RCR) | payer BC ==
[~2020-03-18] VITALS: Ht 170 cm; Wt 63.6 kg
[~2020-03-18 05:39] MED LIST changes: +CYCL10TA9 PO; +KETO10TA PO; +MULT-1136 PO
== END 2020-03-18 14:43 | disposition home or self-care (01) ==
LOC: PREOP 05:39
PROVIDERS: ATTEND Obstetrics & Gynecology
DX: Z01.818 Encounter for other preprocedural examination (principal); N94.6 Dysmenorrhea, unspecified; R10.2 Pelvic and perineal pain; Z20.828 Contact with and (suspected) exposure to other viral communicable diseases
CPT/HCPCS: 87635

== ENCOUNTER 2020-03-22 06:58 | Day surgery (SDC) | payer BC ==
[~2020-03-22] VITALS: Ht 170 cm; Wt 63.6 kg
[2020-03-22] VITALS (11 sets, daily range): BP systolic 85–117; BP diastolic 48–74
[2020-03-22] MEDS ORDERED: proPOfol 200 MG/20 ML (DIPRIVAN) VIAL IV ONE (07:01)
[2020-03-22] MEDS ORDERED: ONDANSETRON 4 MG/2 ML (SDV) Z0FRAN ONE (07:01)
[2020-03-22] MEDS ORDERED: ROCURONIUM 10 MG/ML 5 ML SYRINGE IV ONE (07:01)
[2020-03-22] MEDS ORDERED: MIDAZOLAM 2 MG/2 ML (VERSED) VIAL ONE (07:01)
[2020-03-22] MEDS ORDERED: SEVOFLURANE (ULTANE) 15 ML INHAL SOLN ONE ×4 (07:01→10:09)
[2020-03-22] MEDS ORDERED: LIDOCAINE PF 2% 5 ML (XYLOCAINE) VIAL ONE (07:01)
[2020-03-22] MEDS ORDERED: fentaNYL INJECTION 100 MCG/2 ML AMP ONE (07:02)
[2020-03-22] MEDS ORDERED: BUPIVACAINE 0.25% 30 ML (SENSORCAINE) VIAL ONE (07:26)
[2020-03-22] MEDS ORDERED: CLINDAMYCIN 900 MG/50 ML IVPB 50 ML IV ONE (07:30)
--- NOTE | 2020-03-22 07:39 | Progress Note-Pre Operative ---
Pre-Operative Progress Note H&P Reviewed The H&P was reviewed, patient examined and no changes noted. Date Seen by Provider: Mar 22, 2020 Time Seen by Provider: 07:35 Date H&P Reviewed: Mar 22, 2020 Time H&P Reviewed: 07:35 Pre-Operative Diagnosis: POP, CPP, Pelvic pressure DAMIEN PHILLIPS DO Mar 22, 2020 07:39
[2020-03-22] MEDS: LACTATED RINGERS 1,000 ML IV SCH ×2 (07:40→09:24)
[2020-03-22] MEDS: LACTATED RINGERS 1,000 ML IV PRN ×2 (08:00→08:19)
[2020-03-22] MEDS ORDERED: metroNIDAZOLE 500MG/100ML IVPB 100 ML ONE (08:03)
[2020-03-22 08:04] LABS: BASOPHILS % (AUTO) 0 % (0-10); EOSINOPHILS # (AUTO) 0.1 10^3/uL (0.0-0.3); EOSINOPHILS % (AUTO) 2 % (0-10); HEMATOCRIT 36 % (35-52); HEMOGLOBIN 11.2 g/dL (11.5-16.0); LYMPHOCYTES # (AUTO) 1.1 10^3/uL (1.0-4.0); LYMPHOCYTES % (AUTO) 22 % (12-44); MEAN CORPUSCULAR HEMOGLOBIN 25 pg (25-34); MEAN CORPUSCULAR HGB CONC 31 g/dL (32-36); MEAN CORPUSCULAR VOLUME 82 fL (80-99); MEAN PLATELET VOLUME 9.4 fL (9.0-12.2); MONOCYTES # (AUTO) 0.3 10^3/uL (0.0-1.0); MONOCYTES % (AUTO) 6 % (0-12); NEUTROPHILS # (AUTO) 3.6 10^3/uL (1.8-7.8); NEUTROPHILS % (AUTO) 70 % (42-75); PLATELET COUNT 398 10^3/uL (130-400); WHITE BLOOD COUNT 5.2 10^3/uL (4.3-11.0)
[2020-03-22] MEDS ORDERED: metroNIDAZOLE 500MG/100ML IVPB 100 ML IV ONE (08:15)
[2020-03-22] MEDS ORDERED: LACTATED RINGERS 1,000 ML IV SCH (08:33)
[2020-03-22] MEDS ORDERED: HYDR-34 PO (08:42)
[2020-03-22] MEDS ORDERED: IBUP-844 PO (08:42)
[2020-03-22] MEDS ORDERED: DCS100C PO (08:42)
[2020-03-22] MEDS ORDERED: SIME80TA16 PO (08:42)
--- NOTE | 2020-03-22 08:43 | Discharge Inst-Women's Service ---
Discharge Inst-Women's Serv Depart Medication/Instructions New, Converted or Re-Newed RX: RX on Chart Problems Reviewed?: Yes Consults/Follow Up Additional Follow Up: Yes Activity Activity: Activity as Tolerated Driving Instructions: No Driving for 1 Week NO SMOKING: NO SMOKING Nothing Inside Vagina: No Douching, No [place], No Tampons Diet Discharge Diet: No Restrictions Symptoms to Report to : Bleeding Excessive, Pain Increased, Fever Over 101 Degrees F, Vaginal Bleeding Increase, Questions/Concerns For Any Problems or Questions: Contact Your Physician Skin/Wound Care Infection Signs and Symptoms: Increased Redness, Foul Odor of Wound, Increased Drainage, Temperature Above 101 F Stitches/Allen/Dermabond: Dermabond, Care of Stitches Bathing Instructions: DAMIEN Kennedy DO Mar 22, 2020 08:43
[2020-03-22] MEDS ORDERED: ANTACID SUSP 30 ML UDC (MYLANTA) PO PRN (08:45)
[2020-03-22] MEDS ORDERED: HYDROcodone/APAP 7.5 MG/325 MG (LORTAB, LORCET PLUS) TABLET PO PRN (08:45)
[2020-03-22] MEDS ORDERED: DOCUSATE SODIUM 100 MG (COLACE) CAP PO PRN (08:45)
[2020-03-22] MEDS ORDERED: CHLORASEPTIC LOZENGE MM PRN (08:45)
[2020-03-22] MEDS ORDERED: ZOLPIDEM 5 MG (AMBIEN) TAB PO PRN (08:45)
[2020-03-22] MEDS ORDERED: SIMETHICONE 80 MG (MYLICON) CHEW PO PRN (08:45)
[2020-03-22] MEDS ORDERED: KETOROLAC 30 MG/ML VIAL IV PRN (08:45)
[2020-03-22] MEDS ORDERED: ONDANSETRON 4 MG/2 ML (SDV) Z0FRAN IV PRN (08:45)
[2020-03-22] MEDS ORDERED: NEOSTIGMINE 3 MG/3 ML VIAL ONE (09:28)
[2020-03-22] MEDS ORDERED: INDIGO CARMINE 8 MG/ML 5 ML AMP ONE (09:28)
[2020-03-22] MEDS ORDERED: GLYCOPYRROLATE 0.2 MG/ML (ROBINUL) 2 ML VIAL ONE (09:28)
[2020-03-22] MEDS ORDERED: LIDOCAINE JELLY 2% 6 ML SYRINGE ONE (09:52)
[2020-03-22] MEDS ORDERED: HYDROmorphone 2 MG/ML VIAL (DILAUDID) ONE (09:54)
[2020-03-22] MEDS ORDERED: diphenhydrAMINE 50 MG/ML INJ (BENADRYL) ONE (10:00)
[2020-03-22] MEDS ORDERED: KETOROLAC 30 MG/ML VIAL ONE (10:37)
--- NOTE | 2020-03-22 10:38 | Anesthesia-General Post-Op ---
General Patient Condition Mental Status/LOC: Same as Preop Cardiovascular: Satisfactory Nausea/Vomiting: Absent Respiratory: Satisfactory Pain: Controlled Complications: Absent Post Op Complications Complications None Follow Up Care/Instructions Patient Instructions None needed. Anesthesia/Patient Condition Patient Condition Patient is doing well, no complaints, stable vital signs, no apparent adverse anesthesia problems. No complications reported per nursing. EMILY MENG CRNA Mar 22, 2020 10:38
[2020-03-22] MEDS ORDERED: ONDANSETRON 4 MG/2 ML (SDV) Z0FRAN IVP PRN (10:45)
--- NOTE | 2020-03-22 11:35 | NUR ---
Pt to unit via bed accompanied by OR staff. Reports rec'd from [facility]. VSS. Three op sites dry and intact. Catheter patent. Pt given water and tolerated well. Pt denies any needs or concerns at this time
--- NOTE | 2020-03-22 14:13 | NUR ---
Dr updated on pt urine output of 75ml. Orders rec'd to give 10mg Lasix IV.
[2020-03-22] MEDS ORDERED: FUROSEMIDE 40 MG/4 ML INJ (LASIX) ONE (14:14)
[2020-03-22] MEDS ORDERED: FUROSEMIDE 40 MG/4 ML INJ (LASIX) IVP ONE (14:15)
--- NOTE | 2020-03-22 14:30 | NUR ---
Dr. Sanchez at bedside. Pt catheter output 850ml. Orders given to discharge when pt has been up to void. Pt catheter removed, and assisted to toilet. + void of 100ml.
--- NOTE | 2020-03-22 15:50 | NUR ---
Discharge instructions given to pt and signs to verify. Medications reviewed with pt. Pt denies any needs or concerns at this time
--- NOTE | 2020-03-22 16:00 | NUR ---
Pt ambulates off unit with all personal belongings accompanied by this RN. No s/s of distress.
--- NOTE | 2020-03-22 19:35 | OPERATIVE REPORT ---
DATE OF SERVICE: PREOPERATIVE DIAGNOSES: 1. A 34-year-old female with chronic pelvic pain. 2. Pelvic organ prolapse. 3. Dense adhesions of the midline of the classical to the anterior abdominal wall. POSTOPERATIVE DIAGNOSES: 1. A 34-year-old female with chronic pelvic pain. 2. Pelvic organ prolapse. 3. Dense adhesions of the midline of the classical to the anterior abdominal wall. PROCEDURE: Robotic-assisted total laparoscopic hysterectomy with lysis of adhesions. SURGEON: Fran Phillips DO ASSOCIATE PROFESSOR OF FORESTRY: Sarah Cornelius DNP, who was necessary for manipulation and retraction throughout the procedure. ANESTHESIA: General endotracheal. ESTIMATED BLOOD LOSS: Minimal. URINE OUTPUT: 300 mL of indigo carmine stained at the end of the procedure. FLUIDS: 1600 mL lactated Ringer's solution. FINDINGS: A grossly normal appearing bilateral ovaries with dense adhesions of the uterus to the vesicouterine peritoneum obliterating the vesicouterine peritoneum and anterior abdominal wall. SPECIMEN SENT: Uterus and cervix. INDICATIONS FOR PROCEDURE: This 34-year-old female is a patient who had returned to my office with ongoing issues with pain with intercourse and issues with her bladder filling like she is incompletely emptying as well as some prolapse issues and feeling like a fullness in the pelvis when her bladder is full. We discussed briefly in the office, the possibility of a pessary placement and the elevation a pessary could offer versus proceeding with hysterectomy for her prolapse and the possibility that is causing the pain. Risks of the procedure of a pessary placement was reviewed with the patient. We also discussed hysterectomy as a definitive possible care for this. Risk of hysterectomy was discussed with the patient in detail including risk of bleeding, infection, damage to surrounding structures including, but not limited to bowel, bladder, ureter, kidneys, possible need for reoperation, postoperative complications that may occur, risk from anesthesia and even . After everything was discussed with the patient in detail, consent was obtained in the preoperative area with her present. The patient was then taken to the operating room. OPERATIVE REPORT IN DETAIL: Once in the operating room, anesthesia was found to be adequate, placed in the dorsal lithotomy position, prepped and draped in normal sterile fashion. Timeout was performed. [place] catheter was placed using sterile technique. A weighted speculum inserted to the patient's vagina. Right angle retractor was used to visualize the cervix, which was grasped at 12 o'clock position using a long Allis clamp and 0 Vicryl suture was then placed in anterior lip of the cervix and Allis clamp was then removed, the suture was then used as my retraction on the cervix. I then gently sounded the uterine cavity, depth was found to be 8 cm. I selected 8 cm Misty uterine manipulator tip and a 3.5 cm colpotomy ring. The manipulator was advanced to the cervix, which allows for the colpotomy ring to be advanced around the vaginal fornix. Once the balloon was deployed and the Misty uterine manipulator, I am able to appreciate excellent manipulation on bimanual exam. I then removed all the other instruments from the patient's vagina, performed a change of gloves. I took my attention to the abdomen where infraumbilically I infiltrated this area using 0.25% Marcaine, making an 8 mm incision with a knife and directed Veress needle through the incision. Intraperitoneal placement was confirmed using saline drop test. An opening pressure of 5 mmHg was noted. I proceeded to maximum pressure of 15 mmHg, at which point I removed the Veress needle and introduced an 8 mm laparoscopic da Dannielle camera trocar. Once this was in place, I am able to confirm intraperitoneal placement using the da Dannielle laparoscope. I then had the patient placed in steep Trendelenburg. I am able to visualize all my anatomy as defined in my findings below. There are also omental adhesions of the anterior abdominal wall. I then placed two lateral trocars approximately 8 cm lateral to my infraumbilical trocar. These were placed in similar fashion by infiltrating the skin using 0.25% Marcaine. 8 mm incisions were made with a knife and once these incisions are made, the trocars were placed under direct visualization of laparoscope. I then bringing the da Dannielle robot and docked in the appropriate fashion, placing the vessel sealer in the left hand and monopolar chelsey in the right hand. I then took my place at the operative console. I began by taking down the adhesions of the omentum to the anterior abdominal wall. This was done using both sharp and blunt dissection. There was no active bleeding noted from the adhesion takedown. I then performed the following dissection bilaterally. Starting at the round ligament, I bipolar cauterized and transected using the vessel sealer. I then grasped the uteroovarian ligament, bipolar cauterized and transected using vessel sealer. This allows me to grasp the entire broad ligament, which I bipolar cauterized and transected using the vessel sealer down to the level of the lower uterine segment. The entire time, I am able to trace the ureter at the pelvic sidewall, staying clear of my dissection planes. I then took the anterior leaflet of the broad ligament around to the vaginal fornix anteriorly. I took the posterior dissection down around to the posterior vaginal fornix posteriorly. This allows me to skeletonize the uterine vessels laterally, which I then bipolar cauterized and transected using the vessel sealer. I then created a colpotomy at 12 o'clock position using monopolar chelsey. I took this circumferentially around the vaginal fornix amputating the cervix away from the vaginal fornix. The cervix and uterus were then removed through the vagina. Once this was done, I placed 2-0 Vicryl suture and the lateral vaginal apices of the incision and the vaginal cuff, colposuspending them to the uterosacral ligaments. I then closed the remainder of the vaginal cuff using 2-0 V-Loc in a running fashion, after which there was no active bleeding noted from any of my dissection planes. I then undocked the da Dannielle robot and proceeded with remainder of the case laparoscopically, I covered all my planes of the events of dissection using Surgiflo hemostatic agent. I then had the patient taken out of steep Trendelenburg and removed the lateral trocars under direct visualization of the laparoscope and infraumbilical trocars left in place to release insufflation and to introduce 10 mL of 0.25% Marcaine in the peritoneal cavity for postoperative pain management. These trocars were removed as well. The skin reapproximated using 4-0 Monocryl in interrupted subcuticular stitches. Dermabond was applied to the incisions and Band-Aids were placed over the incisions as well. The patient tolerated the procedure well and was taken to recovery area in stable condition. Lap and sponge count was correct at the end of procedure. Instrument counts correct as well. 900 mg of clindamycin and 500 mg of Flagyl were given preoperatively for infection prophylaxis. Job ID: [id number] DocumentID: [id number] Dictated Date: 03/22/2020 12:59:38 [employer]ifier Date: 03/22/2020 19:35:31 Dictated By: FRAN PHILLIPS DO
[2020-03-23] MEDS ORDERED: IBUPROFEN 600 MG (MOTRIN) TAB PO SCH (01:15)
== END 2020-03-22 16:00 | disposition home or self-care (01) ==
LOC: SDC 06:58
PROVIDERS: ATTEND Obstetrics & Gynecology
DX: N85.8 Other specified noninflammatory disorders of uterus (principal); G89.29 Other chronic pain; K21.9 Gastro-esophageal reflux disease without esophagitis; Z79.02 Long term (current) use of antithrombotics/antiplatelets; Z88.0 Allergy status to penicillin; Z88.1 Allergy status to other antibiotic agents; Z80.9 Family history of malignant neoplasm, unspecified; Z83.3 Family history of diabetes mellitus
CPT/HCPCS: 36415; 84703; 85025; 87081; 88307

== ENCOUNTER → 2022-01-16 | Outpatient (CLI) | payer BC ==
[~2022-01-16] MED LIST changes: +CYCL10TA25 PO; -CYCL10TA9 PO; +DOCU-239 PO; -FOLI1TAB24 PO; +FOLI1TAB33 PO; +HYDR-34 PO; +IBUP-844 PO; +SIME80TA16 PO
--- NOTE | 2022-01-16 15:27 | Diagnostic Imaging Report ---
PROCEDURE: US Thyroid. TECHNIQUE: Multiple real-time grayscale images were obtained of the thyroid in various projections. INDICATION: Lymphadenopathy. Right lobe of thyroid measures 4.7 x 1.1 x 1.2 cm, left lobe measures 4.6 x 1.2 x 1.4 cm. Isthmus is 2 mm in thickness. Right lobe contains several tiny hypoechoic circumscribed nodules approximately 5 mm in size suggestive of small cysts. No dominant thyroid mass is detected. Normal-sized lymph nodes left posterior neck at the area of palpable abnormality are noted, largest measuring 0.9 x 0.3 x 1.3 cm. IMPRESSION: 1. Subcentimeter cysts right lobe of thyroid. No dominant thyroid mass is detected. 2. Normal sized lymph nodes left neck at the area of palpable abnormality. Dictated by: Dictated on workstation # [id number]
== END ==
LOC: RAD 12:30
PROVIDERS: ATTEND Nurse Practitioner Family
DX: E04.1 Nontoxic single thyroid nodule (principal)
CPT/HCPCS: 76536

== ENCOUNTER 2022-07-31 14:45 | Emergency (ER) | payer BC ==
[~2022-07-31] VITALS: Ht 170.1 cm; Wt 70.0 kg
[2022-07-31] MEDS ORDERED: NS IV 1000 ML 1,000 ML IV STA (15:07)
--- NOTE | 2022-07-31 15:14 | ED General ---
General Chief Complaint: Dizziness/Syncope Stated Complaint: LIGHTHEADED | DIZZINESS Nursing Triage Note: ambulatory to room 4 with c/o feeling dizzy and "fuzzy" since a near syncopal episode which happened around 1400 while she was sitting at her desk at work. states now she feels she "cant get out of the dizzy/fuzzy feeling" Source of Information: Patient Exam Limitations: No Limitations History of Present Illness Date Seen by Provider: Jul 31, 2022 Time Seen by Provider: 15:10 Initial Comments Patient is a 37-year-old female with a history of partial hysterectomy who presents ED with dizziness and fuzziness. She had a near syncopal episode at work. She states 1 hour ago she was sitting at work behind a desk when she had a near syncopal episode. Denied loss of consciousness. She states she looked to the right and started become dizzy. She describes it as being on a boat. She reports unsteady gait. She thought her right sided felt fuzzy right before this happened. She had no prior chest pain. She started feeling dizzy and lightheaded this past Sunday. Was diagnosed with strep last placed on minocycline. She is currently on the antibiotics. She has been feeling nauseous without vomiting or diarrhea. No cough, chest pain, visual loss, ear ringing, hearing loss, headache. No known cardiac history. Denies history of similar symptoms in the past. Denies history of hypertension, dyslipidemia, diabetes, smoking. Denies unilateral muscle weakness, facial droop Allergies and Home Medications Allergies Coded Allergies: Cephalosporins (Verified Allergy, Intermediate, SEVERE RASH, 07/22/15) Penicillins (Verified Allergy, Mild, RASH, 03/17/20) Patient Home Medication List Home Medication List Reviewed: Yes Docusate Sodium (Dok) 100 Mg Capsule, 100 MG PO BID PRN for CONSTIPATION-1ST LINE Prescribed by: DAMIEN PHILLIPS on 03/22/20 08 Hydrocodone Bit/Acetaminophen (HYDROcodone/APAP 7.5/325 TAB) 1 Ea Tablet, 2 EA PO Q6H PRN for Pain-See Instructions Prescribed by: DAMIEN PHILLIPS on 03/22/20841 Ibuprofen (Ibu) 600 Mg Tablet, 600 MG PO Q6H Prescribed by: DAMIEN PHILLIPS on 03/22/20 08 Meclizine HCl (Meclizine HCl) 25 Mg Tablet, 25 MG PO Q6H Prescribed by: JESUS WHEATLEY on 07/31/22 1645 Multivitamin (Multivitamin) 1 Each Tablet, 1 EACH PO DAILY, (Reported) Entered as Reported by: JAYJAY BREWSTER on 03/17/20 1008 Ondansetron (Ondansetron Odt) 4 Mg Tab.rapdis, 4 MG SL Q4H PRN for NAUS EA/VOMITING Prescribed by: JESUS WHEATLEY on 07/31/22 1645 Simethicone (Simethicone) 80 Mg Tab.chew, 40 MG PO TID PRN for INDIGESTION 2ND LINE Prescribed by: DAMIEN PHILLIPS on 03/22/20 0842 Review of Systems Review of Systems Constitutional: No chills, No diaphoresis, No fever, No malaise, No weakness EENTM: No ear pain, No blurred vision, No hoarseness, No mouth pain, No mouth swelling, No throat pain, No throat swelling Respiratory: No cough, No dyspnea on exertion, No short of breath Cardiovascular: No chest pain Gastrointestinal: No abdominal pain, No diarrhea; nausea; No vomiting Genitourinary: No decreased output, No discharge Musculoskeletal: No back pain, No joint pain, No muscle pain, No muscle stiffness Skin: No change in color, No change in hair/nails Psychiatric/Neurological: Other (Dizziness) Past Qakbzpp-Tfpewy-Uqlmtc Hx Patient Social History Tobacco Use?: No Use of E-Cig and/or Vaping dev: No Substance use?: No Alcohol Use?: No Pt feels they are or have been: No Immunizations Up To Date Tetanus Booster (TDap): Unknown PED Vaccines UTD: Yes Influenza Vaccine Up-to-Date: No; Not Current First/Initial COVID19 Vaccinat: "3 shots" Seasonal Allergies Seasonal Allergies: Yes Past Medical History Surgery/Hospitalization HX: anxiety sx hx 3 c sections, right knee scope, partial hysterectomy Surgeries: Yes ( X 3;D&C X 2; WISDOM TEETH, R KNEE, ) Section, Orthopedic, Tubal Ligation Respiratory: No Currently Using CPAP: No Currently Using BIPAP: No Cardiac: Yes (MITRAL VALVE PROLAPSE-"MINIMAL") Neurological: No Reproductive Disorders: Yes (CHRONIC PELVIC PAIN AND BLADDER ISSUES AFTER LAST ) Female Reproductive Disorders: Menstrual Problems [employer]OCK WORK[employer] History: Tubal Ligation Sexually Transmitted Disease: No HIV/AIDS: No Genitourinary: No Gastrointestinal: Yes (OCC. HEARTBURN) Gastroesophageal Reflux Musculoskeletal: No Endocrine: No HEENT: Yes (GLASSES) Loss of Vision: Denies Hearing Impairment: Denies Cancer: No Psychosocial: No Integumentary: No Blood Disorders: Yes (ANTI THROMBIN 3) Adverse Reaction/Blood Tranf: No (N/A) Family Medical History Patient reports no known family medical history. Physical Exam Vital Signs Vital Signs - First Documented 07/31/22 14:53 Temp 36.3 Pulse 92 Resp 18 B/P (MAP) 131/80 (97) Pulse Ox 99 O2 Delivery Room Air Capillary Refill : Less Than 3 Seconds Height, Weight, BMI Height: 5'7.00" Weight: 130lbs. 0.0oz. [id number]; 24.00 BMI Method:Stated General Appearance: No Apparent Distress, WD/WN Eyes: Bilateral Eye Normal Inspection, Bilateral Eye PERRL, Bilateral Eye EOMI, Bilateral Eye Other ( fluid behind bilateral TM) HEENT: PERRL/EOMI, TMs Normal, Normal ENT Inspection, Pharynx Normal Neck: Full Range of Motion, Normal Inspection, Non Tender, Supple Respiratory: Chest Non Tender, Lungs Clear, Normal Breath Sounds, No Accessory Muscle Use, No Respiratory Distress Cardiovascular: Regular Rate, Rhythm, No Edema, No Gallop, No JVD, No Murmur Gastrointestinal: Normal Bowel Sounds, No Organomegaly, No Pulsatile Mass, Non Tender, Soft Back: Normal Inspection, No CVA Tenderness, No Vertebral Tenderness Extremity: Normal Capillary Refill, Normal Inspection, Normal Range of Motion, Non Tender Neurologic/Psychiatric: Alert, Oriented x3, No Motor/Sensory Deficits, Normal Mood/Affect Skin: Normal Color, Warm/Dry Progress/Results/Core Measures Suspected Sepsis SIRS Temperature: Pulse: 92 Respiratory Rate: 18 Laboratory Tests 07/31/22 15:10: White Blood Count 7.0 Blood Pressure 131 /80 Mean: 97 Laboratory Tests 07/31/22 15:10: Creatinine 0.82, Platelet Count 381, Total Bilirubin 0.2 Results/Orders Lab Results Laboratory Tests Test 07/31/22 15:10 07/31/22 15:48 Range/Units White Blood Count 7.0 4.3-11.0 10^3/uL Red Blood Count 4.08 3.80-5.11 10^6/uL Hemoglobin 11.6 11.5-16.0 g/dL Hematocrit 34 L 35-52 % Mean Corpuscular Volume 83 80-99 fL Mean Corpuscular Hemoglobin 28 25-34 pg Mean Corpuscular Hemoglobin Concent 34 32-36 g/dL Red Cell Distribution Width 12.2 10.0-14.5 % Platelet Count 381 130-400 10^3/uL Mean Platelet Volume 9.2 9.0-12.2 fL Immature Granulocyte % (Auto) 2 % Neutrophils (%) (Auto) 60 42-75 % Lymphocytes (%) (Auto) 29 12-44 % Monocytes (%) (Auto) 7 0-12 % Eosinophils (%) (Auto) 2 0-10 % Basophils (%) (Auto) 1 0-10 % Neutrophils # (Auto) 4.2 1.8-7.8 10^3/uL Lymphocytes # (Auto) 2.0 1.0-4.0 10^3/uL Monocytes # (Auto) 0.5 0.0-1.0 10^3/uL Eosinophils # (Auto) 0.2 0.0-0.3 10^3/uL Basophils # (Auto) 0.1 0.0-0.1 10^3/uL Immature Granulocyte # (Auto) 0.1 0.0-0.1 10^3/uL Sodium Level 137 135-145 MMOL/L Potassium Level 3.5 L 3.6-5.0 MMOL/L Chloride Level 103 98-107 MMOL/L Carbon Dioxide Level 23 21-32 MMOL/L Anion Gap 11 5-14 MMOL/L Blood Urea Nitrogen 12 7-18 MG/DL Creatinine 0.82 0.60-1.30 MG/DL Estimat Glomerular Filtration Rate 94 BUN/Creatinine Ratio 15 Glucose Level 127 H 70-105 MG/DL Calcium Level 9.1 8.5-10.1 MG/DL Corrected Calcium 9.1 8.5-10.1 MG/DL Magnesium Level 2.1 1.6-2.4 MG/DL Total Bilirubin 0.2 0.1-1.0 MG/DL Aspartate Amino Transf (AST/SGOT) 17 5-34 U/L Alanine Aminotransferase (ALT/SGPT) 35 0-55 U/L Alkaline Phosphatase 77 40-136 U/L Total Protein 7.2 6.4-8.2 GM/DL Albumin 4.0 3.2-4.5 GM/DL Urine Color YELLOW Urine Clarity CLEAR Urine pH 7.5 5-9 Urine Specific [place] 1.010 L 1.016-1.022 Urine Protein NEGATIVE NEGATIVE Urine Glucose (UA) NEGATIVE NEGATIVE Urine Ketones NEGATIVE NEGATIVE Urine Nitrite NEGATIVE NEGATIVE Urine Bilirubin NEGATIVE NEGATIVE Urine Urobilinogen 0.2 < = 1.0 MG/DL Urine Leukocyte Esterase NEGATIVE NEGATIVE Urine RBC (Auto) NEGATIVE NEGATIVE Urine RBC NONE /HPF Urine WBC NONE /HPF Urine Squamous Epithelial Cells RARE /HPF Urine Crystals NONE /LPF Urine Bacteria TRACE /HPF Urine Casts NONE /LPF Urine Mucus NEGATIVE /LPF Urine Culture Indicated NO Urine Test NEGATIVE NEGATIVE My Orders Orders - LUPE SHEFFIELD Cbc With Automated Diff (07/31/22 15:07) Comprehensive Metabolic Panel (07/31/22 15:07) Ekg Tracing (07/31/22 15:07) Ns Iv 1000 Ml (Sodium Chloride 0.9%) (07/31/22 15:07) Meclizine Tablet (Antivert Tablet) (07/31/22 15:15) Ondansetron Injection (Zofran Injectio (07/31/22 15:15) Ct Head Wo (07/31/22 15:07) Magnesium (07/31/22 15:07) Urinalysis (07/31/22 15:58) Hcg,Qualitative Urine (07/31/22 15:58) Medications Given in ED Current Medications Medications Dose Ordered Sig/Raz Route Start Time Stop Time Status Last Admin Dose Admin Meclizine HCl 25 mg ONCE ONCE PO 07/31/22 15:15 07/31/22 15:16 DC 07/31/22 15:20 25 MG Ondansetron HCl 4 mg ONCE ONCE IVP 07/31/22 15:15 07/31/22 15:16 DC 07/31/22 15:20 4 MG Vital Signs/I&O 07/31/22 07/31/22 14:53 17:14 Temp 36.3 Pulse 92 80 Resp 18 18 B/P (MAP) 131/80 (97) 123/72 Pulse Ox 99 97 O2 Delivery Room Air Room Air Capillary Refill : Less Than 3 Seconds Blood Pressure Mean: 97 ECG Comment Sinus rhythm, 77 bpm, QRS duration 85 MS, QTc 401 MS Departure Communication (PCP) Reviewed previous ER visits, H&P, lab testing. Patient presents to ED with dizziness, lightheadedness with near syncopal episode 1 hour before arrival. Patient on arrival has no neurological red flag findings such as unilateral muscle weakness or sensory changes, facial droop, head pain. No visual changes. She has no current chest pain. Attempted Chamberlain-Hallpike and she had some dizziness with right-sided head movement. She did felt nauseous but did not vomit. No significant nystagmus noted. Patient neuro exam unremarkable without any acute findings. NIH is 0. Due to the continuous dizziness, unstrady gait a CT scan of the head was ordered which was unremarkable. Patient was given a liter of fluid. She was not orthostatic hypotensive. CBC, CMP, UA and EKG was ordered due to the dizziness and lightheadedness for any other acute etiologies such as arrhythmia, infection, anemia, electrolyte abnormality. CBC, CMP g rossly unremarkable. Urinalysis was negative for infection. EKG normal sinus rhythm without evidence of arrhythmia. Patient was given oral meclizine 25mg, IV fluid for her symptoms. She is currently on minocycline for sore throat. Discussed with patient that the antibiotic could result in her dizziness and lightheadedness, however I would not suspect vertigo type symptoms rooms spinning with head movements with antibiotic. Discussed potentially stopping the antibiotic to see if this is anything associated to the lightheadedness and dizziness. No ear ringing, hearing loss suggesting Mnire's or labyrinthitis. She did have fluid behind bilateral TMs which could be contributing to the vertigo. No evidence of infection. She has no focal neural deficits suggesting stroke. She appears much better at this time. Will discharge with meclizine and Zofran. Recommend continue hydration. Discussed stopping the antibiotic and to take meclizine. Outpatient follow-ups with ENT or pain Aileen for Missy's maneuver if this continues to become an issue. Return precaution were discussed Impression Primary Impression: Dizziness Disposition: 01 HOME, SELF-CARE Condition: Stable Departure-Patient Inst. Decision time for Depature: 16:44 Referrals: IAIN PACHECO APRN (PCP/Family) Primary Care Physician Patient Instructions: Vertigo (a Type of Dizziness) (DC) Scripts Ondansetron (Ondansetron Odt) 4 Mg Tab.rapdis 4 MG SL Q4H PRN for NAUSEA/VOMITING, #6 TAB Prov: LUPE SHEFFIELD 07/31/22 Meclizine HCl (Meclizine HCl) 25 Mg Tablet 25 MG PO Q6H for Dizziness, #16 TAB Prov: LUPE SHEFFIELD 07/31/22 LUPE SHEFFIELD Jul 31, 2022 15:14
[2022-07-31] MEDS ORDERED: ONDANSETRON 4 MG/2 ML (SDV) Z0FRAN IVP ONE (15:15)
[2022-07-31] MEDS ORDERED: MECLIZINE 25 MG (ANTIVERT) TAB PO ONE (15:15)
[2022-07-31 15:27] LABS: BASOPHILS # (AUTO) 0.1 10^3/uL (0.0-0.1); BASOPHILS % (AUTO) 1 % (0-10); EOSINOPHILS # (AUTO) 0.2 10^3/uL (0.0-0.3); EOSINOPHILS % (AUTO) 2 % (0-10); HEMATOCRIT 34 % (35-52); HEMOGLOBIN 11.6 g/dL (11.5-16.0); LYMPHOCYTES % (AUTO) 29 % (12-44); MEAN CORPUSCULAR HEMOGLOBIN 28 pg (25-34); MEAN CORPUSCULAR HGB CONC 34 g/dL (32-36); MEAN CORPUSCULAR VOLUME 83 fL (80-99); MEAN PLATELET VOLUME 9.2 fL (9.0-12.2); MONOCYTES # (AUTO) 0.5 10^3/uL (0.0-1.0); MONOCYTES % (AUTO) 7 % (0-12); NEUTROPHILS # (AUTO) 4.2 10^3/uL (1.8-7.8); NEUTROPHILS % (AUTO) 60 % (42-75); PLATELET COUNT 381 10^3/uL (130-400)
[2022-07-31 15:30] LABS: POTASSIUM 3.5 MMOL/L (3.6-5.0)
[2022-07-31 15:31] LABS: CALCIUM 9.1 MG/DL (8.5-10.1)
[2022-07-31 15:33] LABS: TOTAL PROTEIN 7.2 GM/DL (6.4-8.2)
[2022-07-31 15:34] LABS: BILIRUBIN,TOTAL 0.2 MG/DL (0.1-1.0)
[2022-07-31 15:36] LABS: CREATININE SERUM 0.82 MG/DL (0.60-1.30)
[2022-07-31 15:39] LABS: MAGNESIUM 2.1 MG/DL (1.6-2.4)
--- NOTE | 2022-07-31 15:55 | Diagnostic Imaging Report ---
PROCEDURE: CT head without contrast. TECHNIQUE: Multiple contiguous axial images were obtained through the brain without the use of intravenous contrast. Auto Exposure Controls were utilized during the CT exam to meet ALARA standards for radiation dose reduction. INDICATION: Dizziness. Near syncope. COMPARISON: None. FINDINGS: No intracranial hemorrhage, mass effect, hydrocephalus, or extra-axial fluid collections. No CT evidence of territorial infarction. Osseous structures are intact. Visualized paranasal sinuses and mastoids are clear. IMPRESSION: No acute intracranial CT findings. Dictated by: Dictated on workstation # [id number]
[2022-07-31 16:03] LABS: BILIRUBIN,URINE NEGATIVE (NEGATIVE); CLARITY,URINE CLEAR; COLOR,URINE YELLOW; GLUCOSE, URINE (UA) NEGATIVE (NEGATIVE); KETONES,URINE NEGATIVE (NEGATIVE); LEUKOCYTE ESTERASE ,URINE NEGATIVE (NEGATIVE); NITRITE,URINE NEGATIVE (NEGATIVE); PH,URINE 7.5 (5-9); PROTEIN,URINE NEGATIVE (NEGATIVE)
[2022-07-31 16:33] LABS: BACTERIA,URINE TRACE /HPF; SQUAMOUS EPITHELIAL CELL,UR RARE /HPF
[2022-07-31] MEDS ORDERED: ONDA4TAB11 SL (16:45)
[2022-07-31] MEDS ORDERED: MECL-149 PO (16:45)
[2022-07-31 17:14] VITALS: BP 123/72
== END 2022-07-31 17:13 | disposition home or self-care (01) ==
LOC: EDUNIT# 14:45 → ER 14:47
DX: R42 Dizziness and giddiness (principal); J02.9 Acute pharyngitis, unspecified
CPT/HCPCS: 36415; 70450; 80053; 81000; 83735; 84703; 85025; 93005